=== PATIENT | male | born 1985 | race Caucasian/White ===

== ENCOUNTER 2020-07-28 03:53 | Emergency (ER) | payer SELFPAY ==
[~2020-07-28] VITALS: Ht 177.8 cm; Wt 89.4 kg
--- NOTE | 2020-07-28 04:33 | Emergency Department Note ---
History of Present Illnes History of Present Illness Chief Complaint: Extremity Trauma/Pain History of Present Illness This is a 34 year old male arrived to the ED with complaints of red forearm pain after knocking his hand against a kids toy. . Onset (how long ago): hour(s) Radiation: Reports non-radiation Severity: mild Duration (how long): hour(s) Timing of current episode: constant Progression: unchanged Chronicity: new Relieving factors: none Past Medical/Family History Physician Review I have reviewed the patient's past medical and family history. Any updates have been documented here. Other Last Tetanus: UNK Review of Systems Review of Systems Constitutional: Reports no symptoms EENTM: Reports no symptoms Cardiovascular: Reports no symptoms Respiratory: Reports no symptoms Gastrointestinal: Reports no symptoms Genitourinary: Reports no symptoms Musculoskeletal: Reports no symptoms, Reports as per HPI, Reports muscle pain, Reports muscle stiffness Integumentary: Reports no symptoms Neurological: Reports no symptoms Psychological: Reports no symptoms Endocrine: Reports no symptoms Hematological/Lymphatic: Reports no symptoms Physical Exam Related Data Allergies: Coded Allergies: No Known Allergies (Unverified , 01/30/15) Vital signs reviewed: Yes Physical Exam CONSTITUTIONAL Constitutional: Present well-developed, Present well-nourished HENT HENT: Present normocephalic, Present atraumatic, Present oropharynx clear/moist, Present nose normal HENT L/R: Present left ext ear normal, Present right ext ear normal EYES Eyes: Reports PERRL, Reports conjunctivae normal NECK Neck: Present ROM normal PULMONARY Pulmonary: Present effort normal, Present breath sounds normal CARDIOVASCULAR Cardiovascular: Present regular rhythm, Present heart sounds normal, Present capillary refill normal, Present normal rate GASTROINTESTINAL Abdominal: Present soft, Present nontender, Present bowel sounds normal GENITOURINARY Genitourinary: Present exam deferred SKIN Skin: Present warm, Present dry MUSCULOSKELETAL Musculoskeletal: Present ROM normal, Present swelling (+swelling over medial aspect of right forearm, compartments soft, +radial pulse) NEUROLOGICAL Neurological: Present alert, Present oriented x 3, Present no gross motor or sensory deficits PSYCHOLOGICAL Psychological: Present mood/affect normal, Present judgement normal Assessment & Plan Medical Decision Making [facility] 34 M arrived with forearm contussion, normal exam except swelling. No concerns of bony abnormality. Zhou bandage applied and patient stable for discharge. Assessment & Plan Final Impression: (1) Forearm sprain Depart Disposition: HOME, SELF-FDC Meds No Active Prescriptions or Reported Meds NAY BALDERAS DO Jul 28, 2020 04:33
== END 2020-07-28 04:10 | disposition home or self-care (01) ==
LOC: ER 04:01
DX: S53.491A Other sprain of right elbow, initial encounter (principal); S59.811A Other specified injuries right forearm, initial encounter; W22.8XXA Striking against or struck by other objects, initial encounter; Y92.008 Other place in unspecified non-institutional (private) residence as the place of occurrence of the external cause
CPT/HCPCS: 99282

== ENCOUNTER 2020-08-04 21:08 | Emergency (ER) | payer SELFPAY | END 2020-08-04 22:30 | disposition short-term general hospital (02) | LOC: ER 22:19 | DX: R52 Pain, unspecified (principal) ==

== ENCOUNTER 2020-08-11 17:30 | Emergency (ER) | payer SELFPAY ==
[~2020-08-11] VITALS: Ht 177.8 cm; Wt 89.4 kg
== END 2020-08-11 19:15 | disposition home or self-care (01) ==
LOC: ER 17:56
DX: S53.491D Other sprain of right elbow, subsequent encounter (principal); W22.09XD Striking against other stationary object, subsequent encounter; F17.210 Nicotine dependence, cigarettes, uncomplicated
CPT/HCPCS: 99283

== ENCOUNTER 2021-06-13 18:41 | Emergency (ER) | payer SELFPAY ==
[~2021-06-13] VITALS: Ht 177.8 cm; Wt 89.4 kg
[2021-06-13] MEDS ORDERED: LIDOCAINE HCL 1% LOCAL INJ 20 ML VIAL INJ ONE (19:15)
[2021-06-13] MEDS ORDERED: TETANUS/DIPHTHERIA TOX ADULT 0.5 ML SYR IM ONE (19:15)
[2021-06-13] MEDS ORDERED: TETANUS/DIPHTHERIA TOX ADULT 0.5 ML SYR ONE (19:19)
[2021-06-13] MEDS ORDERED: NEOMYCIN/POLYMYX/BACITR OINT 0.9 GM PKT TOP ONE (21:45)
== END 2021-06-13 21:50 | disposition home or self-care (01) ==
LOC: ER 19:01
DX: S61.411A Laceration without foreign body of right hand, initial encounter (principal); W45.8XXA Other foreign body or object entering through skin, initial encounter; Y92.008 Other place in unspecified non-institutional (private) residence as the place of occurrence of the external cause
CPT/HCPCS: 12001; 73130; 73200; 90471; 90714; 99284; J2001